=== PATIENT | male | born 1975 ===

== ENCOUNTER 2018-06-06 15:20 | Emergency (ER) | payer SELFPAY ==
--- NOTE | 2018-06-06 16:59 | UC ---
Skin Complaint HPI - HPI Summary HPI Summary: 2 WEEKS OF PAINFUL DRAINING LESIONS ON BUTTOCKS AND ONE ON RIGHT LOW BACK. GIRLFRIEND HAS BEEN LANCING THEM AT HOME. NO FEVER. HAS HAD SIMILAR LESIONS IN THE PAST THAT HAVE ALL GONE AWAY WITHOUT MEDICAL INTERVENTION. - History of Current Complaint Chief Complaint: UCSkin Time Seen by Provider: 06/06/18 16:31 Stated Complaint: SKIN Hx Obtained From: Patient, Family/Sheet Catcher - GIRLFRIEND Onset/Duration: Gradual Onset, Lasting Weeks, Still Present Timing: Constant Onset Severity: Moderate Current Severity: Moderate Pain Intensity: 9 Pain Scale Used: 0-10 Numeric Character: Redness, Raised, Painful Aggravating Factor(s): Touch Alleviating Factor(s): Nothing Associated Signs & Symptoms: Positive: Drainage, Tenderness. Negative: Nausea, Fever - Allergy/Home Medications Allergies/Adverse Reactions: Allergies Allergy/AdvReac Type Severity Reaction Status Date / Time No Known Allergies Allergy Verified 06/06/18 16:00 PMH/Surg Hx/FS Hx/Imm Hx Other Respiratory History: PE 2010 - Surgical History Surgical History: Yes Surgery Procedure, Year, and Place: Left wrist. Left lung clot 2010 - Family History Known Family History: Positive: Non-Contributory - Social History Alcohol Use: None Substance Use Type: Excessive Caffeine Smoking Status (MU): Heavy Every Day Tobacco Smoker Review of Systems All Other Systems Reviewed And Are Negative: Yes Constitutional: Positive: Negative Skin: Positive: Other - DRAINING LESIONS BUTTOCKS AND BACK Respiratory: Positive: Negative Cardiovascular: Positive: Negative Gastrointestinal: Positive: Negative Physical Exam Triage Information Reviewed: Yes Appearance: Well-Nourished, Pain Distress - MILD Vital Signs: Initial Vital Signs Temp 98.8 F 06/06/18 15:54 Pulse 101 06/06/18 15:54 Resp 16 06/06/18 15:54 BP 126/83 06/06/18 15:54 Pulse Ox 100 06/06/18 15:54 Vital Signs Reviewed: Yes Eyes: Positive: Conjunctiva Clear ENT: Positive: Hearing grossly normal Neck: Positive: Supple Respiratory: Positive: No respiratory distress, No accessory muscle use Cardiovascular: Positive: Pulses Normal Abdomen Description: Positive: Soft Musculoskeletal: Positive: No Edema Neurological: Positive: Alert Psychological: Positive: Age Appropriate Behavior Skin: Positive: Other - 2.5CM AREA OF ERYTHEMA RIGHT LOW BACK WITH CENTRALLY LOCATED SCAB. MILDLY TENDER. SIMILAR APPEARING 1.5CM LESION ON LEFT BUTTOCK AND 1CM LESION RIGHT BUTTOCK. NO DRAINAGE. NO FLUCTUANCE. Course/Dx - Diagnoses Provider Diagnosis: Abscess and cellulitis of gluteal region, Abscess of lower back Discharge - Sign-Out/Discharge Documenting (check all that apply): Patient Departure All imaging exams completed and their final reports reviewed: No Studies - Discharge Plan Condition: Stable Disposition: HOME Prescriptions: Mupirocin 2% OINT* [Bactroban 2 % Oint*] 1 applic TOPICAL BID #1 tube Sulfamethox/Trimethoprim DS* [Bactrim DS 800/160 TAB*] 1 tab PO BID #20 tab Patient Education Materials: Abscess (ED) Referrals: [facility] [Outside] - If Needed Additional Instructions: TAKE THE ANTIBIOTIC TWICE DAILY FOR THE FULL 10 DAYS. APPLY BACTOBAN OINTMENT TWICE DAILY. WARM/HOT COMPRESSES/SOAKS AT LEAST 4 TIMES DAILY SEEK FOLLOW-UP IF YOU DEVELOP SPREADING REDNESS OF THE SKIN, PURULENT DRAINAGE, FEVER, INCREASED PAIN OR ANY OTHER CONCERNING SYMPTOMS. CALL THE NUMBER BELOW FOR ASSISTANCE IN ESTABLISHING WITH A PCP An additional resource available to assist in finding the appropriate physician for your health care needs is the [facility] ([facility]). You may contact them by calling [phone]. - Billing Disposition and Condition Condition: STABLE Disposition: Home
== END 2018-06-06 16:53 | disposition home or self-care (01) ==
LOC: UCEAST 15:20
DX: L02.31 Cutaneous abscess of buttock (principal); L03.317 Cellulitis of buttock; L02.212 Cutaneous abscess of back [any part, except buttock and flank]; F17.210 Nicotine dependence, cigarettes, uncomplicated
CPT/HCPCS: 99202; G0463

== ENCOUNTER 2019-01-15 17:02 | Emergency (ER) | payer OTHER ==
--- OUTSIDE RECORDS SUMMARY | 2019-01-15 17:28 | XMS REPORT | Continuity of Care Document ---
:1975 External Reference #:[id number] Author Name Oscar Martin MD (transmitted by agent of provider Kathy Phoenix) Address [address] [place] [id number] Care Team Providers Name Role Phone Oscar Martin MD - Hospitalist Care Team Information [employer] [phone] Problems Active Problems Provider Date Bipolar disorder Oscar Martin MD Onset: 06/25/2018 Carpal tunnel syndrome of left wrist Oscar Martin MD Onset: 06/25/2018 Social History Type Date Description Comments Sex Unknown Tobacco Use Start: Unknown Heavy tobacco smoker (more more than one pack a day than 10 cigarettes/day) Smoking Status Reviewed: 12/21/18 Heavy tobacco smoker (more more than one pack a day than 10 cigarettes/day) Allergies, Adverse Reactions, Alerts Description No Known Drug Allergies Medications Active Medications SIG Qnty Indications Ordering Provider Date Alprazolam Take twice a 60tabs F31.9 Oscar Martin MD 12/21/2018 1mg Tablets day Olanzapine take 1 tab 30tabs F31.9 Oscar Martin MD 07/30/2018 5mg Tablets daily History Medications Xanax 1 pill twice a day as 60tabs F31.9 Oscar Martin MD 07/30/2018 - 0.5mg Tablets needed for 12/21/2018 anxiety/panic attacks Quetiapine Fumarate 1 tab by mouth at 60tabs F31.9 Oscar Martin MD 2018 - bedtime night for 2 08/01/2018 50mg Tablets nights then 2 tabs by mouth at bedtime. No Active Unknown 06/25/2018 - Medications 07/04/2018 Immunizations Description No Information Available Vital Signs Date Vital Result Comment 12/21/2018 11:09am Height 71 inches 5'11" Weight 194.00 lb BP Systolic Sitting 126 mmHg BP Diastolic Sitting 89 mmHg Body Temperature 99.0 F O2 % BldC Oximetry 9772 % BMI (Body Mass Index) 27.1 kg/m2 11/06/2018 1:41pm Height 71 inches 5'11" Weight 191.00 lb Heart Rate 66 /min BP Systolic Sitting 121 mmHg BP Diastolic Sitting 75 mmHg O2 % BldC Oximetry 98 % BMI (Body Mass Index) 26.6 kg/m2 Results Description No Information Available Procedures Description No Information Available Medical Devices Description No Information Available Encounters Type Date Location Provider Dx Diagnosis Office Visit 11/06/2018 [facility] Aicha Alves, F31.9 Bipolar disorder, 1:40p Medicine - [facility] unspecified Office Visit 07/30/2018 [facility] Oscar Martin MD F31.9 Bipolar disorder, 11:00a Medicine - Suite unspecified R G56.02 Carpal tunnel syndrome, left upper limb Office Visit 06/25/2018 3:00p DO Not Use Care Oscar Martin F31.9 Bipolar disorder, Connections unspecified [facility] G56.02 Carpal tunnel syndrome, left upper limb Assessments Date Code Description Provider 12/21/2018 F31.9 Bipolar disorder, unspecified Oscar Martin MD 12/21/2018 K02.7 Dental root caries Oscar Martin MD 11/06/2018 F31.9 Bipolar disorder, unspecified Aicha Alves M.D. 07/30/2018 F31.9 Bipolar disorder, unspecified Oscar Martin MD 07/30/2018 G56.02 Carpal tunnel syndrome, left upper limb Oscar Martin MD 06/25/2018 F31.9 Bipolar disorder, unspecified Oscra Martin MD 06/25/2018 G56.02 Carpal tunnel syndrome, left upper limb Oscar Martin MD Plan of Treatment Future Appointment(s):02/15/2019 11:20 am - Oscar aMrtin MD at [facility] Internal Medicine - [address]/20/2018 - Oscar Martin MDF31.9 Bipolar disorder, unspecifiedNew Medication:Alprazolam 1 mg - Take twice a dayComments:Please follow-up with [facility]. Your xanax dose was increased. Please take the olanzapine EVERYDAY.Follow up:8 weeks.K02.7 Dental root caries Functional Status Description No Information Available Mental Status Description No Information Available Referrals Refer to Dr Reason for Referral Status Appt Date Ronald Myers MD left carpal tunnel (s/p 2 surgeries) Sent 07/09/[address] [place] [id number] [phone]
--- NOTE | 2019-01-15 18:39 | ED ---
Substance Abuse/Use - HPI Summary HPI Summary: 43 year old male who presents today seeking substance detox. Patient states that he has been snorting heroin for 3.5 years because he has custody of his 15 year old daughter. Patient reports using heroin on the way to the ED tonight, as he is afraid of experiencing withdrawal symptoms. Patient states he feels shaky, which he attributes to his anxiety. Patient smokes 1/2 pack of cigarettes per day. Denies alcohol, marijuana, or other recreational drug use. He states that he gets nausea and vomiting and headache and gets very shaky. He states his symptoms happened about 3 hours after his last ingestion. - History Of Current Complaint Chief Complaint: EDDetoxRequest Stated Complaint: DETOX PER PT Time Seen by Provider: 01/15/19 18:21 - Allergies/Home Medications Allergies/Adverse Reactions: Allergies Allergy/AdvReac Type Severity Reaction Status Date / Time No Known Allergies Allergy Verified 01/15/19 18:23 Home Medications: Home Medications Ibuprofen TAB* [Advil TAB*] 400 mg PO Q6H PRN 01/15/19 [History Confirmed ] PMH/Surg Hx/FS Hx/Imm Hx Endocrine/Hematology History: Denies: Hx Anticoagulant Therapy Respiratory History: Reports: Other Respiratory Problems/Disorders - collapsed lung Denies: Hx Asthma - Surgical History Surgery Procedure, Year, and Place: Left wrist. Left lung clot 2010 - Immunization History Immunizations Up to Date: Yes Infectious Disease History: No Infectious Disease History: Denies: Traveled Outside the [place] in Last 30 Days - Family History Known Family History: Positive: Non-Contributory - Social History Alcohol Use: None Substance Use Type: Reports: Excessive Caffeine, Heroin Smoking Status (MU): Heavy Every Day Tobacco Smoker Review of Systems Constitutional: Negative Eyes: Negative ENT: Negative Cardiovascular: Negative Respiratory: Negative Gastrointestinal: Negative Genitourinary: Negative Musculoskeletal: Negative Skin: Negative Neurological: Negative Positive: Anxious All Other Systems Reviewed And Are Negative: Yes Physical Exam Triage Information Reviewed: Yes Vital Signs On Initial Exam: Initial Vitals Temp Pulse Resp BP Pulse Ox 97.8 F 68 18 171/104 98 01/15/19 17:07 01/15/19 17:07 01/15/19 17:07 01/15/19 17:07 01/15/19 17:07 Vital Signs Reviewed: Yes Appearance: Positive: Well-Appearing Skin: Positive: Warm, Dry Head/Face: Positive: Normal Head/Face Inspection Eyes: Positive: Normal, Conjunctiva Clear ENT: Positive: Pharynx normal Respiratory/Lung Sounds: Positive: Clear to Auscultation, Breath Sounds Present Cardiovascular: Positive: Normal, RRR Musculoskeletal: Positive: Normal Neurological: Positive: Normal Psychiatric: Positive: Normal Procedures - Sedation Patient Received Moderate/Deep Sedation with Procedure: No Diagnostics - Vital Signs Vital Signs Temp Pulse Resp BP Pulse Ox 01/15/19 17:07 97.8 F 68 18 171/104 98 - Laboratory Lab Statement: Any lab studies that have been ordered have been reviewed, and results considered in the medical decision making process. Course/Dx - Course Course Of Treatment: 43-year-old male presents for detox for heroin today. He states he snorted heroin an hour before arriving. Not currently having withdrawal symptoms. Discuss options patient. Decided will start buprenorphine today. Discussed needs to follow-up with [facility] for continued management. Patient understands importance of waiting until experience withdraw to restart medication. Warned about side effects of medication. Gave Zofran as needed for nausea. Patient understands and agrees with plan. - Diagnoses Differential Diagnosis/HQI/PQRI: Positive: Alcohol Withdrawal, Drug Abuse, Drug Withdrawal Provider Diagnoses: Opioid abuse Discharge ED - Sign-Out/Discharge Documenting (check all that apply): Patient Departure - Discharge Plan Condition: Good Disposition: HOME Prescriptions: Buprenorphine HCl/Naloxone HCl [Buprenorp-Nalox 4-1 mg Sl Film] 2 each SL DAILY #10 film MDD 2 Ondansetron ODT TAB* [Zofran 4 MG Odt TAB*] 4 mg PO Q6H PRN #20 tab.odt PRN Reason: Nausea Patient Education Materials: Buprenorphine/Naloxone (Into the mouth), Opioid Use Disorder (ED) Referrals: No Primary Care Phys,NOPCP [Primary Care Provider] - Additional Instructions: follow up with [facility], call [phone] for appointment tomorrow start buprenorphine 1 tablet disolved and then wait 2 hours to take another tablet if needed, only start when in moderate withdrawal take two films thereafter every morning stop using heroin use zofran every 6 hours as needed for nausea Return to ED if develop any new or worsening symptoms - Billing Disposition and Condition Condition: GOOD Disposition: Home - Attestation Statements Provider Attestation: I was available for consult. This patient was seen by the [facility]. The patient was not presented to, seen by, or examined by me. Andi Gonzalez MD
[2019-01-15 19:27] VITALS: BP 160/99
== END 2019-01-15 19:20 | disposition home or self-care (01) ==
LOC: ED 17:02
DX: F11.10 Opioid abuse, uncomplicated (principal); F17.210 Nicotine dependence, cigarettes, uncomplicated
CPT/HCPCS: 99282